=== PATIENT | male | born 1985 | race African-American/Black ===

== ENCOUNTER 2016-07-14 16:52 | Emergency (ER) | payer OTHER ==
[~2016-07-14] VITALS: Ht 182.9 cm; Wt 105.0 kg
[2016-07-14] MEDS ORDERED: IBUPROFEN 800 MG TABLET PO ONE (18:15)
[2016-07-14 19:04] VITALS: BP 150/81
== END 2016-07-14 19:33 | disposition home or self-care (01) ==
LOC: EMS 16:55
DX: S62.317A Displaced fracture of base of fifth metacarpal bone, left hand, initial encounter for closed fracture (principal); F17.210 Nicotine dependence, cigarettes, uncomplicated; W22.01XA Walked into wall, initial encounter; Y93.89 Activity, other specified; Y92.89 Other specified places as the place of occurrence of the external cause; Y99.8 Other external cause status
CPT/HCPCS: 99284

== ENCOUNTER 2023-02-13 22:58 | Emergency (ER) | payer OTHER ==
[~2023-02-13] VITALS: Ht 185.4 cm; Wt 105.0 kg
[2023-02-13 23:11] VITALS: BP 118/66; PULSE 98; RESP 16; TEMP 98.1
== END 2023-02-14 00:52 | disposition home or self-care (01) ==
LOC: EMS 22:59
DX: S61.212A Laceration without foreign body of right middle finger without damage to nail, initial encounter (principal); Z53.21 Procedure and treatment not carried out due to patient leaving prior to being seen by health care provider; W45.8XXA Other foreign body or object entering through skin, initial encounter; Y93.89 Activity, other specified; Y92.89 Other specified places as the place of occurrence of the external cause; Y99.8 Other external cause status
CPT/HCPCS: 99281; Z7502